=== PATIENT | male | born 1945 | race Caucasian/White ===

== ENCOUNTER 2018-07-18 09:39 | Emergency (ER) | payer MEDICARE, SELFPAY ==
[2018-07-18 09:47] VITALS: BP 154/76; PULSE 73; RESP 16; TEMP 36.4; O2SAT 99
--- NOTE | 2018-07-18 09:50 | DI.RAD.S_ITS ---
PROCEDURE: XR KNEE LT 3V INDICATIONS: swelling TECHNIQUE: 3 views of the knee were acquired. COMPARISON: None. FINDINGS: Bones: No fractures or dislocations. No suspicious bony lesions. Mild tricompartmental periarticular osteophyte formation. Soft tissues: Small joint effusion. 14 mm diameter rounded radiodensity projects over the posterior medial knee joint. No suspicious soft tissue calcifications. IMPRESSION: 1. Posterior threaded. 2. Probable intra-articular loose body within a Ruiz's cyst. Small knee joint effusion. This could be further assessed with a knee MRI, if clinically indicated. Dictated by: Robb Cortez M.D. on 07/18/2018 at 10:34 Approved by: Robb Cortez M.D. on 07/18/2018 at 10:35
--- NOTE | 2018-07-18 10:06 | ED_ITS ---
HPI - Extremity Injury (Lower) General Chief Complaint: Extremity Injury, Lower Stated Complaint: LEFT KNEE PAIN Time Seen by Provider: 07/18/18 10:05 Source: patient Mode of arrival: ambulatory Limitations: no limitations History of Present Illness HPI Narrative: Patient is a 72-year-old male here for evaluation of left knee pain. He states that a couple days ago he felt like that he tweaked his left knee. When around the rest of the day without any problems. He states that that day later he started having more pain in his left knee and then woke up this morning with continued pain. Did not fall. No prior injuries to his knee. Does have some swelling. Has not tried anything for symptoms prior to arrival. Related Data Home Medications Medication Instructions Recorded Confirmed Niacin (Niacinamide) #0 02/10/10 Previous Rx's Medication Instructions Recorded diazepam [Valium] 5 mg PO Q8HP PRN #10 tab 04/14/16 Allergies Allergy/AdvReac Type Severity Reaction Status Date / Time Sulfa (Sulfonamide Allergy Unknown Unverified 10/02/17 12:08 Antibiotics) Review of Systems Constitutional Denies fever(s) Musculoskeletal Denies tingling Comments: Left knee pain Integumentary/Breasts Denies lesions and Denies rash Neurologic Denies tingling and Denies paresthesias Hematologic/Lymphatic Comments: Not on anticoagulation PFSH Medical History Hyperlipidemia (Acute) Social History Smoking Status: Never smoker Exam Initial Vital Signs Initial Vital Signs: Vital Signs Temperature 97.5 F L 07/18/18 09:47 Pulse Rate 73 07/18/18 09:47 Respiratory Rate 16 07/18/18 09:47 Blood Pressure 154/76 H 07/18/18 09:47 Pulse Oximetry 99 07/18/18 09:47 Const General: cooperative, healthy appearing, comfortable, well developed, well groomed and No acute distress Orientation: alert and oriented x3 Resp Effort & Inspection: normal respiratory effort Neuro Sensory Exam: no sensory deficits noted Extrem Other: Tenderness to palpation along the medial aspect of the left knee. ACL MCL PCL and LCL are all intact. Patient able to do straight leg raise. No patella tenderness. No patellar tendon tenderness. No quadriceps tendon tenderness. No hamstring tenderness. Psych Appearance: grossly normal and well kempt Course Orders Ordered: ED Orders 07/18/18 09:50 XR knee LT 3V Stat Vital Signs - 8 hr 07/18/18 09:47 Temperature 97.5 F L Pulse Rate 73 Respiratory Rate 16 Blood Pressure 154/76 H Pulse Oximetry 99 MDM - Extremity Injury (Lower) Imaging Data X-ray knee: Radiologist's impression: [address] [address] XRay Report Signed Patient: Ike Márquez FMR#: [id number] : 8Acct:[id number] Age/Sex: 72 / MDate of Service: 07/18/18 Loc: ED Accession Number: [id number] Procedure: XR knee LT 3V Ordering Provider: Luis Acuña D.O. PROCEDURE: XR KNEE LT 3V INDICATIONS: swelling TECHNIQUE: 3 views of the knee were acquired. COMPARISON: None. FINDINGS: Bones: No fractures or dislocations. No suspicious bony lesions. Mild tricompartmental periarticular osteophyte formation. Soft tissues: Small joint effusion. 14 mm diameter rounded radiodensity projects over the posterior medial knee joint. No suspicious soft tissue calcifications. IMPRESSION: 1. Posterior threaded. 2. Probable intra-articular loose body within a Ruiz's cyst. Small knee joint effusion. This could be further assessed with a knee MRI, if clinically indicated. Dictated by: Robb Cortez M.D. on 07/18/2018 at 10:34 Approved by: Robb Cortez M.D. on 07/18/2018 at 10:35 [facility] Narrative Medical decision making narrative: Patient is neurovascularly intact. X-rays are negative. He does have an effusion of his left knee. Major ligaments are intact with functional testing. I do suspect that he has disrupted his medial meniscus. We did discuss conservative treatments for now. Did not feel like he needs an MRI out of the emergency department. in follow-up with his primary care doctor. He was given return precautions. He expressed understanding and agreement with plan. Discharge Plan Departure Patient Disposition: Home Clinical Impression: Knee pain, left Instructions: How To Perform RICE (Rest, Ice, Compress, Elevate) Activity Restrictions/Additional Instructions: The discharge instructions does focus on the ankle however you can use this with the knee as well. Ice your knee. Keep it elevated. Use the knee brace like we discussed. Recommend you contact your primary care doctor for a follow- up. You can use anti-inflammatories with food for any discomfort. Prescriptions: No Action Niacin (Niacinamide) Qty: 0 RF: 0 diazepam [Valium] 5 MG tablet 5 mg PO Q8HP PRNQty: 10 RF: 0
[2018-07-18 11:27] VITALS: BP 143/82; PULSE 65; RESP 18; TEMP 36.8; O2SAT 99
== END 2018-07-18 11:35 | disposition home or self-care (01) ==
PROVIDERS: Emergency Provider Emergency Medicine; Family Provider Physician Assistant; PCP Physician Assistant
DX: M25.562 Pain in left knee (principal)
CPT/HCPCS: 73562; 99282; 99283

== ENCOUNTER → 2020-02-19 09:08 | Outpatient (CLI) | payer MEDICARE, SELFPAY ==
--- NOTE | 2020-02-19 | DI.US.S_ITS ---
PROCEDURE: US THYROID INDICATIONS: THYROID NODULE focal mild browser TECHNIQUE: Real-time scanning was performed of the thyroid gland, with image documentation. COMPARISON: [facility], CR, XR CHEST 2V, 02/19/2020, 9:25. FINDINGS: Right: Thyroid lobe measures 5.3 x 2.1 x 1.7 cm. Left: Thyroid lobe measures 5 x 2 x 1.6 cm. Isthmus: 3 mm thick. Nodule number: 1 Location: Right inferior thyroid laterally Size: 0.8 x 0.5 x 0.5 cm. Composition: Spongiform Echogenicity: Isoechoic Shape: wider than tall. Margins: Smooth Echogenic foci: None Total points: 1 ACR TI-RADS category: 2 Nodule number: 2 Location: Right inferior thyroid Size: 0.8 x 0.7 x 0.7 cm. Composition: Predominantly cystic Echogenicity: Markedly hypoechoic Shape: wider than tall. Margins: Smooth Echogenic foci: Apparent punctate Total points: 4 ACR TI-RADS category: 4 Nodule number: 3 Location: Right inferior thyroid medially Size: 0.8 x 0.4 x 0.6 cm. Composition: Spongiform Echogenicity: Isoechoic Shape: wider than tall. Margins: Smooth Echogenic foci: None Total points: 1 ACR TI-RADS category: 2 Nodule number: 4 Location: Left superior thyroid Size: 0.5 x 0.3 x 0.5 cm. Composition: Predominantly cystic Echogenicity: Hypoechoic Shape: wider than tall. Margins: Smooth Echogenic foci: None Total points: 2 ACR TI-RADS category: 2 Nodule number: 5 Location: Left mid inferior thyroid Size: 0.5 x 0.3 x 0.6 cm. Composition: Predominantly cystic Echogenicity: Hypoechoic Shape: wider than tall. Margins: Smooth Echogenic foci: None Total points: 2 ACR TI-RADS category: 2 IMPRESSION: Bilateral subcentimeter thyroid nodules are seen. By published criteria, no specific imaging follow-up is recommended for nodules of these sizes. ACR TI-RADS definitions and recommendations: TI-RADS 1 (benign): 0 points. FNA not needed. TI-RADS 2 (not suspicious): 2 points. FNA not needed. TI-RADS 3 (mildly suspicious): 3 points. * FNA if 2.5 cm or larger, follow up if 1.5 cm or larger (at 1, 3, and 5 years). TI-RADS 4 (moderately suspicious): 4-6 points. * FNA if 1.5 cm or larger, follow up if 1 cm or larger (at 1, 2, 3, and 5 years). TI-RADS 5 (highly suspicious): 7 points or more. * FNA if 1 cm or larger, follow up if 0.5 cm or larger (every year for 5 years). Dictated by: Nasim Rodriguez M.D. on 02/19/2020 at 9:07 Approved by: Nasim Rodriguez M.D. on 02/19/2020 at 9:13
--- NOTE | 2020-02-19 | DI.RAD.S_ITS ---
PROCEDURE: XR CHEST 2V INDICATIONS: THYROID NODULE/weight loss/gen hyperhidrosis TECHNIQUE: 2 views of the chest were acquired. COMPARISON: [facility], , THYROID, 02/19/2020, 9:25. FINDINGS: Surgical changes and devices: None. Lungs and pleura: Lungs are clear. No pleural effusions or pneumothorax. Mediastinum: The cardiac contours are within normal limits. The aorta demonstrates calcification and tortuosity. Bones and chest wall: No suspicious bony abnormalities. Age-appropriate bony degenerative changes are seen. Soft tissues appear unremarkable. IMPRESSION: Unremarkable chest study for age. If there is strong clinical concern for intrathoracic metastatic disease, please consider a dedicated chest CT with contrast for further evaluation. Dictated by: Nasim Rodriguez M.D. on 02/19/2020 at 9:06 Approved by: Nasim Rodriguez M.D. on 02/19/2020 at 9:06
[2020-02-19 10:55] LABS: Hematocrit 46.9 % (41-53); Hemoglobin 15.9 g/dL (13.5-17.5); Mean Corpuscular Hemoglobin 31.6 PG (26-34); Platelet Count 199 X10^3/uL (150-400); Red Blood Cell Count 5.04 X10^6/uL (4.5-5.9); Red Cell Distribution Width 13.5 % (11.6-14.8); White Blood Cell Count 4.9 X10^3/uL (4.5-11.0)
[2020-02-19 11:13] LABS: Erythrocyte Sedimentation Rate 1 MM/HR (0-15)
[2020-02-19 11:16] LABS: Alanine Aminotransferase 42 IU/L (<50); Albumin 4.2 g/dL (3.5-5.0); Albumin Globulin Ratio 1.7 (1.0-2.8); Alkaline Phosphatase 68 U/L (38-126); Aspartate Aminotransferase 39 IU/L (17-59); BUN Creatinine Ratio 13.5 (6-22); Bilirubin Total 0.7 mg/dL (0.2-1.3); Blood Urea Nitrogen 15 mg/dL (9-20); C-Reactive Protein Quant < 0.5 mg/dL (<1.0); Calcium 9.4 mg/dL (8.4-10.2); Carbon Dioxide 29 mmol/L (22-32); Chloride 105 mmol/L (98-107); Estimated Glomerular Filt Rate > 60.0 mL/min (>60); Globulin 2.5 g/dL (1.7-4.1); Glucose 102 mg/dL (80-110); HEMOLYSIS < 15 (0-50); Lactate Dehydrogenase 566 U/L (313-618); Potassium 5.4 mmol/L (3.4-5.1); Sodium 138 mmol/L (137-145); Total Protein 6.7 g/dL (6.3-8.2)
[2020-02-19 11:29] LABS: Neutrophils Absolute Manual 2891 /uL (3000-5900); RBC Morphology Normal Morphology; Total Cells Counted 100
[2020-02-19 11:37] LABS: TSH w/ Reflex to FT4 0.83 uIU/mL (0.47-4.68)
== END ==
PROVIDERS: Family Provider Physician Assistant; PCP Internal Medicine; Referring Provider Internal Medicine; Visit Provider Internal Medicine
DX: E04.2 Nontoxic multinodular goiter (principal); R63.4 Abnormal weight loss; R61 Generalized hyperhidrosis
CPT/HCPCS: 36415; 71046; 76536; 80053; 83615; 84443; 85025; 85651; 86140

== ENCOUNTER 2021-05-02 15:29 | Emergency (ER) | payer MEDICARE, SELFPAY ==
[2021-05-02 15:34] VITALS: BP 145/91; PULSE 81; RESP 18; TEMP 36.5; O2SAT 99
[2021-05-02 18:24] VITALS: BP 165/86; PULSE 62; RESP 16; O2SAT 100
--- NOTE | 2021-05-02 23:37 | ED.ABDPAIN ---
HPI - Abdominal Pain General Chief Complaint: Abdominal Pain Stated Complaint: hernia Time Seen by Provider: 05/02/21 18:04 Source: patient Mode of arrival: Ambulatory History of Present Illness HPI narrative: 75-year-old male nonsmoker with noncontributory medical history presents with his in the chief complaint of a painful lump in his left groin since yesterday. He states that it started after living heavy objects though he does remember a specific moment or event with a pop or sudden onset of pain in his groin. He states he noticed the lump yesterday and it is noticeably worse today. He denies fever chills nor nausea or vomiting. He has no change in bowel habits. He went to the walk-in clinic and was sent here for evaluation including CT and lab work Related Data Home Medications Medication Instructions Recorded Confirmed Niacin (Niacinamide) #0 02/10/10 venlafaxine 37.5 mg 112 mg PO DAILY cap 05/02/21 05/02/21 capsule,extended release 24 hr Allergies Allergy/AdvReac Type Severity Reaction Status Date / Time Sulfa (Sulfonamide Allergy Unknown Unverified 05/02/21 14:59 Antibiotics) Review of Systems Review of Systems Narrative: GENERAL: Denies chills, fatigue, malaise, fever, sweats. HEENT: Denies sinus pain, ear pain, sore throat, difficulty swallowing, dizziness. RESPIRATORY: Denies dyspnea, cough, wheezing, hemoptysis, sputum. CARDIOVASCULAR: Denies chest pain, palpitations, orthopnea, edema, GASTROINTESTINAL: See HPI. : Denies dysuria, frequency, incontinence, hematuria, urinary retention. MUSCULOSKELETAL: denies weakness, joint pain, or bony pain SKIN: Denies rash, skin lesions, or other NEUROLOGIC: Denies weakness, headache, numbness, change in speech, confusion, seizures, incoordination. PSYCHIATRIC: No concerning psychosocial issues. 12 point review of systems is negative except for those stated above Patient History Medical History Hyperlipidemia Social History Smoking Status: Never smoker Smoking Status: Never smoker alcohol intake frequency: 0-2 drinks per day Substance Use Type: does not use Exam Narrative Exam Narrative: GEN: AOx3 and in mild distress EYES: Pupils are equal, round, and reactive to light and accommodation. Extraoccular muscles are intact bilaterally. There is no subconjunctival hemorrhage or exudate. CHEST: Lungs are clear to auscultation bilaterally and free of wheezes, rales, or rhonchi. Heart rate is regular rhythm, there are no murmurs, clicks, rubs, or gallops. There is no chest wall tenderness. ABD: Left inguinal hernia palpated, easily reduced when patient lying flat, no overlying warmth or redness. Abdomen is soft and nontender. There is no guarding or rebound. Bowel sounds are normal in all 4 quadrants. There is no mass or organomegaly. EXT: Full painless ROM of all extremities with no loss of sensation or strength. SKIN: Warm, pink, and dry. No erythema or rash Initial Vital Signs Initial Vital Signs: Vital Signs Temperature 97.7 F 05/02/21 15:34 Pulse Rate 81 05/02/21 15:34 Respiratory Rate 18 05/02/21 15:34 Blood Pressure 145/91 H 05/02/21 15:34 Pulse Oximetry 99 05/02/21 15:34 Course Vital Signs Vital signs: Vital Signs - 8 hr 05/02/21 18:24 Pulse Rate 62 Respiratory Rate 16 Blood Pressure 165/86 H Pulse Oximetry 100 MDM - Abdominal Pain MDM Narrative Medical decision making narrative: Patient with easily reducible left groin hernia, no indication for labs or imaging. Patient given return precautions and questions answered to his apparent satisfaction Discharge Plan Departure Patient Disposition: Home Clinical Impression: Inguinal hernia Qualifiers: Obstruction and gangrene presence: without obstruction or gangrene Laterality: unilateral Recurrence: non-recurrent Qualified Code(s): K40.90 - Unilateral inguinal hernia, without obstruction or gangrene, not specified as recurrent Instructions: Groin Hernia -- Adult Activity Restrictions/Additional Instructions: *You have been diagnosed with [easily reducible left inguinal hernia *What to do: *Please continue to take your regular medications as directed. [ ] New medication prescriptions sent to your pharmacy: [ ] [ ] New medication written as a paper prescription [x ] No new medications given * please follow-up with [facility], call the phone number listed below tomorrow and let them know you were seen in the emergency department and we would like is seen in follow-up. I will electronically transmitted copy of today's note * as we discussed, please avoid heavy lifting or other activities which are likely to increase intra-abdominal pressure. This would include straining on the toilet, so be sure to keep your stools soft. *If you do not have a primary care provider please contact the [facility] Resource line at [phone]. They will ask some questions about your medical history and help get you set up with a doctor in the community. *Return to Emergency Department if you should have any new, worsening or concerning symptoms, such as [fever greater than 101 F, shaking chills, worsening pain, inability to ?reduce? your hernia, persistent vomiting or other bothersome symptoms] Prescriptions: No Action venlafaxine 37.5 mg capsule,extended release 24hr 112 mg PO DAILY RF: 0 Niacin (Niacinamide) Qty: 0 RF: 0 Referrals: Devi Michel MD [Physician] - Kelly Granados MD [Primary Care Provider] -
== END 2021-05-02 18:29 | disposition home or self-care (01) ==
PROVIDERS: Emergency Provider Emergency Medicine; Family Provider Physician Assistant; PCP Internal Medicine
DX: K40.90 Unilateral inguinal hernia, without obstruction or gangrene, not specified as recurrent (principal)
CPT/HCPCS: 99281

== ENCOUNTER → 2021-05-12 11:03 | Outpatient (CLI) | payer MEDICARE, SELFPAY ==
[2021-05-12 11:56] LABS: COVID19 -Nasal RAPID Negative (Negative)
== END ==
PROVIDERS: Family Provider Physician Assistant; PCP Internal Medicine; Visit Provider Surgery
DX: Z01.812 Encounter for preprocedural laboratory examination (principal); Z20.822 Contact with and (suspected) exposure to COVID-19
CPT/HCPCS: 87635; C9803

== ENCOUNTER 2021-05-15 12:43 | Day surgery (SDC) | payer MEDICARE, SELFPAY ==
[2021-05-10 10:41] VITALS: BMI 22.1
[2021-05-15] VITALS (7 sets, daily range): BP systolic 118–156; BP diastolic 71–83; PULSE 64–81; RESP 10–16; TEMP 36.2–37; O2SAT 98–100; BMI 22.1
[2021-05-15] MEDS: LACTATED RINGERS 1,000 ML 42 ML IV (13:28)
--- NOTE | 2021-05-15 14:18 | PM.PREOP ---
Pre-operative Note COVID-19 COVID-19 status: Negative Result date/Date tested (Pos, Neg/Pending): 05/12/21 Interval Note History & Physical reviewed/Exam performed by Physician: Yes Changes to H&P: No ASA Class (for procedural sedation): III
[2021-05-15] MEDS: CEFAZOLIN 1 GM VIAL 2 GM IV (14:38)
--- NOTE | 2021-05-15 14:44 | SUR.OPER ---
Supine on padded OR bed, head on pillow, arms secured on padded arm boards at <90 degrees abduction, legs uncrossed, safety belt at thigh, tape over blanket over lower legs.
[2021-05-15] MEDS: LIDOCAINE 1% W/EPI 20 ML INJ (14:50)
[2021-05-15] MEDS: BUPIVACAINE 0.5% (PF) VIAL 30 ML INJ (14:58)
--- NOTE | 2021-05-15 15:42 | PM.OP.1 ---
Operative Date/Time/Diagnoses Date of procedure: 05/15/21 Time of procedure: 15:42 Pre-op diagnosis: Left inguinal hernia Post-op diagnosis: same Procedure & Clinicians Procedure: Open left inguinal hernia repair with mesh Same procedure as scheduled: Yes Indications: Left inguinal hernia Surgeon: Marvin Doe Click Yes if Unassisted: Yes Anesthesia Type: General Operative Notes Findings: Indirect left inguinal hernia Closure Type: primary Specimen(s): none sent Estimated Blood Loss (mL): 9 Procedure in detail: Preoperative antibiotic was administered. The patient was brought to the operating room and placed on the table in supine position general anesthesia was induced. The left groin was prepped and draped in the normal fashion and a time-out was performed. Roughly 10 mL of lidocaine was injected into the skin and subcutaneous adipose tissue over the left groin. A 5 cm incision was made over the left inguinal canal. Dissection was carried down through the subcutaneous adipose tissue. We dissected down to the external oblique aponeurosis. Additional local was injected deep to the aponeurosis. A 15 blade scalpel was used to lala the external oblique aponeurosis. Metzenbaum scissors were used to carefully open the aponeurosis in the direction of the fibers taking care not to injure the underlying ilioinguinal nerve which was well seen and protected. We completely exposed the inguinal canal. The cord was dissected free from the inguinal ligament and floor of the inguinal canal and the external oblique aponeurosis was dissected off of the internal oblique taking care not to injure the hypogastric nerve. We encircled the cord with a Neal drain for retraction. We dissected the indirect hernia sac from the cord structures and also a cord lipoma and reduced them back into the abdominal cavity. We then fashioned a piece of medium weight Bard mesh to fit the inguinal canal floor. The mesh was secured with multiple interrupted 3-0 Prolene sutures to the pubic tubercle and shelving edge of the inguinal ligament as well as to the conjoint tendon medially. We cut a slit in the mesh and overlapped the tails to recreate an internal ring and secured the medial tail to the inguinal ligament with additional sutures. We injected some more local into the fatty tissue in the inguinal canal and cord. Finally, we removed the [place] drain and closed the external oblique fascia with a running 3-0 Vicryl suture. Skin was closed with interrupted 3-0 Vicryl dermal sutures and a running 4 Monocryl subcuticular stitch. EBL 5 mL The patient was awakened and brought to recovery room. Post-operative Condition: stable Disposition: PACU
== END 2021-05-15 16:49 | disposition home or self-care (01) ==
PROVIDERS: Family Provider Physician Assistant; PCP Internal Medicine; Referring Provider Surgery; Visit Provider Surgery
PROC: (CPT 49505; principal; 2021-05-15 12:45)
DX: K40.90 Unilateral inguinal hernia, without obstruction or gangrene, not specified as recurrent (principal); E78.5 Hyperlipidemia, unspecified
CPT/HCPCS: 49505; C1781; J0690; J2704; J3010

== ENCOUNTER → 2023-10-06 15:48 | Outpatient (CLI) | payer MEDICARE, SELFPAY ==
--- NOTE | 2023-10-06 15:53 | DI.MRI.S_ITS ---
PROCEDURE: MR HEAD/BRAIN WO CON INDICATIONS: Alzheimer's disease TECHNIQUE: Noncontrast axial T1 spin echo, axial T2 fast spin echo, sagittal and axial FLAIR, coronal T2 fast spin echo, axial gradient echo, axial diffusion and ADC through the brain. COMPARISON: Outside Facility, RG, MRI BRAIN WITHOUT CONTRAST, 08/26/2018, 7:32. FINDINGS: Image quality: Excellent. CSF Spaces: Basal cisterns are patent. No extra-axial fluid collections. Ventricles are normal in size and shape. Brain: No intracranial masses or hemorrhage. Lord/white matter interface is normal. Brainstem appears normal. Diffusion-weighted sequence is unremarkable without evidence of acute infarct. Normal intravascular flow voids are present. Mild generalized atrophy without significant white matter chronic ischemic change Skull and face: Calvarium has normal marrow signal. Orbits appear normal. Sinuses: Sinuses and mastoids are clear. IMPRESSION: Moderate generalized cerebral atrophy without change from prior exam Approved by: Fuad Cardoso M.D. on 10/07/2023 at 18:50
== END ==
LOC: MRI 15:50
PROVIDERS: Family Provider Physician Assistant; PCP Physician Assistant; Referring Provider Physician Assistant; Visit Provider Physician Assistant
DX: F02.80 Dementia in other diseases classified elsewhere, unspecified severity, without behavioral disturbance, psychotic disturbance, mood disturbance, and anxiety (principal); G30.9 Alzheimer's disease, unspecified
CPT/HCPCS: 70551